=== PATIENT | male | born 1955 | race Caucasian/White ===

== ENCOUNTER 2017-04-08 17:40 | Emergency (ER) | payer BC ==
[2017-04-08] MEDS ORDERED: Sodium Chloride 0.9% 10 ML Syringe FLUSH PRN (18:01)
--- NOTE | 2017-04-08 18:02 | EDM.PDOC ---
ED HPI GENERAL MEDICAL PROBLEM - General Chief Complaint: Neuro Symptoms/Deficits Stated Complaint: CANT REMEMBER RECENT EVENTS [id number] Time Seen by Provider: 04/08/17 18:01 Source of Information: Reports: Patient, Family, RN, RN Notes Reviewed History Limitations: Reports: Altered Mental Status - History of Present Illness INITIAL COMMENTS - FREE TEXT/NARRATIVE: Pt presents to the ER with his and son. states the patient has been very confused today which is very unlike him. denies any recent trauma, or illnesses. Patient is alert and oriented to place but not time. States he feels like he is confused. states he has forgotten things momentarily today such as conversations and where they are going, what he is doing. Could not finish the task of getting dressed as he forgot what he was doing. Patient denies any pain at this time. No slur of speech. Onset: Today, Sudden - Related Data Allergies Allergy/AdvReac Type Severity Reaction Status Date / Time No Known Allergies Allergy Verified 10/07/15 08:56 Past Medical History Cardiovascular History: Reports: High Cholesterol, Hypertension Social & Family History - Tobacco Use Smoking Status *Q: Never Smoker Second Hand Smoke Exposure: No - Recreational Drug Use Recreational Drug Use: No ED ROS GENERAL - Review of Systems Review Of Systems: ROS reveals no pertinent complaints other than HPI. ED EXAM, NEURO - Physical Exam Exam: See Below Exam Limited By: Altered Mental Status General Appearance: Alert, WD/WN, No Apparent Distress Eye Exam: Bilateral Eye: EOMI, Normal Inspection, PERRL Ears: Normal External Exam, Hearing Grossly Normal Nose: Normal Inspection Throat/Mouth: Normal Inspection, Normal Lips, Normal Teeth, Normal Gums, Normal Oropharynx, Normal Voice, No Airway Compromise Head Exam: Atraumatic, Normocephalic Neck: Normal Inspection, Supple, Non-Tender, Full Range of Motion Respiratory/Chest: No Respiratory Distress, Normal Breath Sounds, No Accessory Muscle Use, Chest Non-Tender, Crackles (bases bilaterally) Cardiovascular: Normal Peripheral Pulses, Regular Rate, Rhythm, No Edema, No Gallop, No JVD, No Murmur, No Rub GI/Abdominal: Normal Bowel Sounds, Soft, Non-Tender, No Organomegaly, No Distention, No Abnormal Bruit, No Mass (Male) Exam: Deferred Rectal (Males) Exam: Deferred Neurological: Alert, Normal Mood/Affect, Normal Dorsiflexion, CN II-XII Intact, Normal Plantar Flexion, Normal Gait, Normal Reflexes. No: Ataxia, Extensor Response to Pain, Flexor Response to Pain, Abnormal Finger to Nose, Abnormal Sensation, Abnormal Light Touch, Abnormal Motor, Abnormal Pin Prick, Abn 2 Pt Discrimination, Babinski, Tremor, Straight Leg Raise (L), Straight Leg Raise (R) , Saddle Anesthesia, Difficulty Walking Back Exam: Normal Inspection, Full Range of Motion Extremities: Normal Inspection, Normal Range of Motion, Non-Tender, No Pedal Edema, Normal Capillary Refill Psychiatric: Normal Affect, Normal Mood Skin Exam: Warm, Dry, Intact, Normal Color, No Rash EKG INTERPRETATION EKG Date: 04/08/17 Time: 18:25 Rate (Beats/Min): 69 EKG Interpretation Comments: EKG shows sinus rhythm. *Q Meaningful Use (ADM) - VTE Risk Assess *Q Each Risk Factor Represents 2 Points: Age 60 - 74 Years Total Score 2 Point Risk Factors: 2 Course - Vital Signs Last Recorded V/S: Last Vital Signs Temp 98.5 F 04/08/17 19:10 Pulse 70 04/08/17 19:10 Resp 15 04/08/17 19:10 BP 130/82 04/08/17 19:10 Pulse Ox 97 04/08/17 19:10 - Orders/Labs/Meds Orders: Active Orders 24 hr Category Date Time Status EKG Documentation Completion [RC] STAT Care 04/08/17 18:02 Active Peripheral IV Care [RC] . DIRECTED Care 04/08/17 18:02 Active Peripheral IV Insertion Adult [OM.PC] Stat Oth 04/08/17 18:02 Ordered Labs: Laboratory Tests 04/08/17 04/08/17 04/08/17 Range/Units 18:25 18:25 18:25 WBC 8.6 (5.0-10.0) 10^3/uL RBC 5.06 (4.6-6.2) 10^6/uL Hgb 14.9 (14.0-18.0) g/dL Hct 44.2 (40.0-54.0) % MCV 87.4 (80-100) fL MCH 29.4 (27.0-34.0) pg MCHC 33.7 (33.0-35.0) g/dL Plt Count 228 (150-450) 10^3/uL Neut % (Auto) 66.2 (42.2-75.2) % Lymph % (Auto) 25.4 (20.5-50.1) % [place] % (Auto) 6.8 (2-8) % Eos % (Auto) 1.2 (1.0-3.0) % Baso % (Auto) 0.4 (0.0-1.0) % Sodium 139 (135-145) mmol/L Potassium 4.7 (3.6-5.0) mmol/L Chloride 104 (101-111) mmol/L Carbon Dioxide 28.0 (21.0-31.0) mmol/L Anion Gap 11.7 BUN 25 H (7-18) mg/dL Creatinine 1.0 (0.6-1.3) mg/dL Est Cr Clr Drug Dosing 75.61 mL/min Estimated GFR (MDRD) > 60 BUN/Creatinine Ratio 25.00 Glucose 100 (74-105) mg/dL Lactic Acid 1.1 (0.5-2.2) mmol/L Calcium 9.5 (8.4-10.2) mg/dl Magnesium 1.8 (1.8-2.5) mg/dL Total Bilirubin 0.5 (0.2-1.0) mg/dL AST 20 (10-42) IU/L ALT 19 (10-60) IU/L Alkaline Phosphatase 54 (42-121) IU/L Troponin I < 0.02 (0.00-0.02) ng/ml Total Protein 7.0 (6.7-8.2) g/dl Albumin 4.5 (3.2-5.5) g/dl Globulin 2.5 Albumin/Globulin Ratio 1.80 Urine Color (YELLOW) Urine Appearance (CLEAR) Urine pH (5.0-9.0) Ur Specific [place] (1.005-1.030) Urine Protein (NEGATIVE) Urine Glucose (UA) (NEGATIVE) Urine Ketones (NEGATIVE) Urine Occult Blood (NEGATIVE) Urine Nitrite (NEGATIVE) Urine Bilirubin (NEGATIVE) Urine Urobilinogen (0.2-1.0) mg/dL Ur Leukocyte Esterase (NEGATIVE) Urine RBC /HPF Urine WBC (0-5/HPF) /HPF Ur Epithelial Cells /HPF Urine Bacteria (0-FEW/HPF) /HPF Urine Mucus /LPF Urine Opiates Screen (NEGATIVE) Ur Oxycodone Screen (NEGATIVE) Urine Methadone Screen (NEGATIVE) Ur Barbiturates Screen (NEGATIVE) U Tricyclic Antidepress (NEGATIVE) Ur Phencyclidine Scrn (NEGATIVE) Ur Amphetamine Screen (NEGATIVE) U Methamphetamines Scrn (NEGATIVE) Urine MDMA Screen (NEGATIVE) U Benzodiazepines Scrn (NEGATIVE) Urine Cocaine Screen (NEGATIVE) U Marijuana (THC) Screen (NEGATIVE) Ethyl Alcohol 6 mg/dL 04/08/17 04/08/17 Range/Units 18:30 18:30 WBC (5.0-10.0) 10^3/uL RBC (4.6-6.2) 10^6/uL Hgb (14.0-18.0) g/dL Hct (40.0-54.0) % MCV (80-100) fL MCH (27.0-34.0) pg MCHC (33.0-35.0) g/dL Plt Count (150-450) 10^3/uL Neut % (Auto) (42.2-75.2) % Lymph % (Auto) (20.5-50.1) % [place] % (Auto) (2-8) % Eos % (Auto) (1.0-3.0) % Baso % (Auto) (0.0-1.0) % Sodium (135-145) mmol/L Potassium (3.6-5.0) mmol/L Chloride (101-111) mmol/L Carbon Dioxide (21.0-31.0) mmol/L Anion Gap BUN (7-18) mg/dL Creatinine (0.6-1.3) mg/dL Est Cr Clr Drug Dosing mL/min Estimated GFR (MDRD) BUN/Creatinine Ratio Glucose (74-105) mg/dL Lactic Acid (0.5-2.2) mmol/L Calcium (8.4-10.2) mg/dl Magnesium (1.8-2.5) mg/dL Total Bilirubin (0.2-1.0) mg/dL AST (10-42) IU/L ALT (10-60) IU/L Alkaline Phosphatase (42-121) IU/L Troponin I (0.00-0.02) ng/ml Total Protein (6.7-8.2) g/dl Albumin (3.2-5.5) g/dl Globulin Albumin/Globulin Ratio Urine Color Yellow (YELLOW) Urine Appearance Slightly cloudy (CLEAR) Urine pH 5.5 (5.0-9.0) Ur Specific [place] >= 1.030 (1.005-1.030) Urine Protein Negative (NEGATIVE) Urine Glucose (UA) Negative (NEGATIVE) Urine Ketones Negative (NEGATIVE) Urine Occult Blood Small H (NEGATIVE) Urine Nitrite Negative (NEGATIVE) Urine Bilirubin Negative (NEGATIVE) Urine Urobilinogen 0.2 (0.2-1.0) mg/dL Ur Leukocyte Esterase Negative (NEGATIVE) Urine RBC 5-10 H /HPF Urine WBC 0-5 (0-5/HPF) /HPF Ur Epithelial Cells Rare /HPF Urine Bacteria Rare (0-FEW/HPF) /HPF Urine Mucus Moderate H /LPF Urine Opiates Screen Negative (NEGATIVE) Ur Oxycodone Screen Negative (NEGATIVE) Urine Methadone Screen Negative (NEGATIVE) Ur Barbiturates Screen Negative (NEGATIVE) U Tricyclic Antidepress Negative (NEGATIVE) Ur Phencyclidine Scrn Negative (NEGATIVE) Ur Amphetamine Screen Negative (NEGATIVE) U Methamphetamines Scrn Negative (NEGATIVE) Urine MDMA Screen Negative (NEGATIVE) U Benzodiazepines Scrn Negative (NEGATIVE) Urine Cocaine Screen Negative (NEGATIVE) U Marijuana (THC) Screen Negative (NEGATIVE) Ethyl Alcohol mg/dL Meds: Medications Discontinued Medications Generic Name Dose Route Start Last Admin Trade Name Freq PRN Reason Stop Dose Admin Sodium Chloride 10 ml 04/08/17 18:01 Saline Flush FLUSH ASDIRECTED PRN Keep Vein Open - Radiology Interpretation Free Text/Narrative:: Head CT without contrast: No acute intracranial process. See rad report Chest x-ray: No acute cardiopulmonary process. See radreport. Departure - Departure Time of Disposition: 20:06 Disposition: DC/Tfer to Acute Hospital 02 Condition: Fair Clinical Impression: Transient global amnesia - Discharge Information Referrals: José Antonio Myers NP [Primary Care Provider] - Forms: ED Department Discharge - My Orders Last 24 Hours: My Active Orders 04/08/17 18:02 EKG Documentation Completion [RC] STAT Peripheral IV Care [RC] . DIRECTED Peripheral IV Insertion Adult [OM.PC] Stat - Assessment/Plan Last 24 Hours: My Active Orders 04/08/17 18:02 EKG Documentation Completion [RC] STAT Peripheral IV Care [RC] . DIRECTED Peripheral IV Insertion Adult [OM.PC] Stat
[2017-04-08 18:48] LABS: ANION GAP 11.7; CHLORIDE,CL 104 mmol/L (101-111); SODIUM,NA 139 mmol/L (135-145)
[2017-04-08 19:11] VITALS: BP 130/82
--- NOTE | 2017-04-10 18:32 | EKG ---
04/08/2017 - SHAAN BARCLAY - FINDINGS: A 12-lead EKG shows normal sinus rhythm with heart rate of 69. No significant ST elevation or ST depression noted on this 12-lead EKG. Nonspecific ST-T wave changes noted on lead V2, V3, and lead III. [facility] /[id number]
== END 2017-04-08 20:04 ==
LOC: DL.ED 17:40
DX: G45.4 Transient global amnesia (principal); I10 Essential (primary) hypertension; E78.00 Pure hypercholesterolemia, unspecified
CPT/HCPCS: 36415; 70450; 71045; 80053; 80305; 81001; 83605; 83735; 84484; 85025; 93005; 99285; G0480